=== PATIENT | male | born 1990 ===

== ENCOUNTER → 2017-09-23 | Outpatient (CLI) | payer BC, OTHER ==
[2017-09-23 12:43] VITALS: BP 166/92; PULSE 82; RESP 15; TEMP 97.7; BMI 71.1
--- NOTE | 2017-11-27 18:16 | P.PN ---
Subjective Progress Note Date: 09/23/17 DATE OF SERVICE: 09/23/2017 CHIEF COMPLAINT: Bariatric assessment. HISTORY OF PRESENT ILLNESS: Bj Thompson is a 27-year-old male who presents with lifelong morbid obesity. As a result of his super morbid obesity, he has developed hypertension. He has undergone over 6+ months medical supervised weight loss. His highest personal weight was 536 pounds. Today he comes in weighing 517 pounds. Since his visit 1 week ago, he has gained 6 pounds. He completed an upper endoscopy findings of a gastric tumor. Additionally, computed tomography scan was obtained. He also had findings of obstructive sleep apnea during this procedure. Now presents for further follow-up. At his height is 5 foot 11.5 inches, he presents 517 pounds. His body mass index is 71.2. He is 339 pounds overweight. His ideal body weight is 178 pounds. He is evaluating for sleeve gastrectomy. PAST MEDICAL HISTORY: 1. Morbid obesity due to excess calories. 2. Body mass index of 73.9 down to 71.2. 3. Hypertensive heart disease. 4. History of tachycardia. PAST SURGICAL HISTORY: 1. No abdominal surgeries. 2. History of facial surgery. 3. Upper endoscopy. HOME MEDICATIONS: 1. Zestoretic. ALLERGIES: Denies. SOCIAL HISTORY: No active tobacco use. FAMILY HISTORY: No family history of ulcerative colitis disease or Crohn's disease. Family history of morbid obesity. No lupus in family. No reports of stomach or esophageal cancer. Mother had thyroid cancer. REVIEW OF ORGAN SYSTEMS: CONSTITUTIONAL: His highest personal weight was 536 pounds. Today he comes in weighing 517 pounds. At his height is 5 foot 11.5 inches, he presents 517 pounds. His body mass index is 71.2. He is 339 pounds overweight. His ideal body weight is 178 pounds. Body mass index of 73.9 down to 71.2. HEENT: Denies any active troubles with vision or hearing. No troubles with swallowing. ENDOCRINE: No diabetes. No hypothyroidism. CARDIOVASCULAR: No reports of palpitations or heart attacks or chest pain. Has hypertension. RESPIRATORY: No asthma. No recent pneumonias. Has obstructive sleep apnea. GI: Denies any bright red blood per rectum or constipation. Does have gastroesophageal reflux disease as described above. MUSCULOSKELETAL: No scoliosis of the spine. Denies any acute lower back pain, hip or knee pain. NEURO: No headaches. No seizure disorders. PSYCH: No depression without suicidal ideation. RHEUMATOLOGIC: No lupus. No rheumatoid arthritis. HEMATOLOGIC: Denies any abnormal bleeding or bruising. No personal history of DVTs. SKIN: No rash. No skin cancer. PHYSICAL EXAM: VITAL SIGNS: Height 5 foot 11.5 inches, weight 517 pounds. BMI 71.2. GENERAL: Well-developed male in no acute distress. HEENT: No scleral icterus. Extraocular movements grossly intact. Hears conversational speech. No nasal drainage. NECK: Supple without lymphadenopathy. CHEST: Nonlabored respirations with equal bilateral excursions. CARDIOVASCULAR: Regular rate on repeat assessment. Distal 2+ pulses. ABDOMEN: Obese, soft, nontender, nondistended. MUSCULOSKELETAL: No clubbing, cyanosis. Gross strength 5/5 distal lower extremities. 1+ pre-tibial pitting edema. NEURO: No focal or lateralizing signs. Cranial nerves 2 through 12 grossly within normal limits. PSYCH: Appropriate affect. Alert and oriented to person, place and time. SKIN: Good skin turgor. Well perfused. STUDIES: CT of the abdomen pelvis reviewed without findings of large gastric tumor. Hepatosplenomegaly identified. EGD FINDINGS: Squamocolumnar junction 41 cm from the incisors. Diaphragmatic hiatus at 41 cm. Hill grade 3 lower esophageal valve. LA grade B erosive esophagitis. Superficial gastritis. A large over 4 cm submucosal mass was found distal to the angularis incisura along the greater curvature along the stomach. No active duodenitis. Final Pathologic Diagnosis GASTRIC ANTRUM, BIOPSY: CHRONIC GASTRITIS. IMMUNOPEROXIDASE STAIN NEGATIVE FOR HELICOBACTER PYLORI ORGANISMS (CONTROLS APPROPRIATE). LABS: Low iron. ASSESSMENT: 1. Morbid obesity due to excess calories. 2. Body mass index of 73.9 down to 71.2. 3. Hypertensive heart disease. 4. History of tachycardia. 5. Obstructive sleep apnea. 6. Gastroesophageal reflux disease. 7. Iron deficiency anemia. 8. Vitamin D deficiency. 9. Leukocytosis of unclear etiology. PLAN: 1. Studies were reviewed with findings of a submucosal tumor likely benign. Patient wishes proceed for sleeve gastrectomy. 2. During his upper endoscopy, he had severe obstructive sleep apnea. Recommend assessment and evaluation including treatment for sleep apnea. 3. Vitamin D treatment started. 4. Recommend iron supplementation for iron deficiency anemia. 5. Will need dietary classes for gastrectomy-type diets. 6. Recommend follow-up completion of medical risk assessment including pulmonary assessment for sleep apnea. Objective - Vital Signs Vital signs: Vital Signs Temp 97.7 F 09/23/17 12:15 Pulse 82 09/23/17 12:15 Resp 15 09/23/17 12:15 BP 166/92 09/23/17 12:15 Pulse Ox Intake & Output 09/22/17 09/23/17 09/23/17 18:59 06:59 18:59 Weight 234.825 kg
== END | disposition home or self-care (01) ==
LOC: BARWHC3 11:02
PROVIDERS: ATTEND Surgery Plastic and Reconstructive Surgery
DX: Z48.815 Encounter for surgical aftercare following surgery on the digestive system (principal); E66.01 Morbid (severe) obesity due to excess calories; I11.9 Hypertensive heart disease without heart failure; G47.33 Obstructive sleep apnea (adult) (pediatric); K21.9 Gastro-esophageal reflux disease without esophagitis; D50.9 Iron deficiency anemia, unspecified; E55.9 Vitamin D deficiency, unspecified; D72.829 Elevated white blood cell count, unspecified; Z68.45 Body mass index [BMI] 70 or greater, adult; Z86.79 Personal history of other diseases of the circulatory system; Z79.899 Other long term (current) drug therapy
CPT/HCPCS: 99211

== ENCOUNTER → 2017-12-29 | Outpatient (CLI) | payer BC, OTHER ==
[2017-12-29 17:10] LABS: Basophils # (A) 0.1 k/uL (0-0.2); Basophils % (A) 1 %; Eosinophils # (A) 0.4 k/uL (0-0.7); Eosinophils % (A) 3 %; HGB 15.3 gm/dL (13.0-17.5); Lymphocytes # (A) 2.4 k/uL (1.0-4.8); Lymphocytes % (A) 21 %; MCH 25.2 pg (25.0-35.0); MCHC 31.8 g/dL (31.0-37.0); MCV 79.4 fL (80.0-100.0); Monocytes # (A) 0.6 k/uL (0-1.0); Monocytes % (A) 5 %; Neutrophils # (A) 7.8 k/uL (1.3-7.7); Neutrophils % (A) 68 %; Platelet Count 253 k/uL (150-450); RBC 6.05 m/uL (4.30-5.90); RDW 14.7 % (11.5-15.5); WBC 11.5 k/uL (3.8-10.6)
[2017-12-29 17:21] LABS: ALT 85 U/L (21-72); AST 49 U/L (17-59); Albumin 4.6 g/dL (3.5-5.0); Alkaline Phosphatase 92 U/L (38-126); Anion Gap 15 mmol/L; Blood Urea Nitrogen 19 mg/dL (9-20); Carbon Dioxide 24 mmol/L (22-30); Chloride 99 mmol/L (98-107); Glucose 99 mg/dL (74-99); Sodium 138 mmol/L (137-145); Total Bilirubin 0.6 mg/dL (0.2-1.3); Total Protein 8.4 g/dL (6.3-8.2)
[2017-12-29 17:28] LABS: Potassium 4.3 mmol/L (3.5-5.1)
== END | disposition home or self-care (01) ==
LOC: LABPAT 16:29
PROVIDERS: ATTEND Surgery Plastic and Reconstructive Surgery
DX: Z01.812 Encounter for preprocedural laboratory examination (principal)
CPT/HCPCS: 80053; 85025; 93005

== ENCOUNTER → 2017-12-29 | Outpatient (CLI) | payer BC, OTHER ==
[2017-12-31 10:42] VITALS: BP 145/85; PULSE 96; RESP 18; TEMP 99.3; BMI 70.1
--- NOTE | 2018-03-07 17:42 | P.PN ---
Subjective Progress Note Date: 12/29/17 DATE OF SERVICE: 12/29/2017 CHIEF COMPLAINT: Bariatric assessment HISTORY OF PRESENT ILLNESS: Bj Thompson is a 27-year-old male who presents with lifelong morbid obesity. Has been undergoing medical supervised weight loss. His highest personal weight was 536 pounds. Today he comes in weighing 509 pounds. Since his last visit 3 months ago, he has lost another 12 pounds. He reports multiple personal obligations which has caused her scheduling this procedure. Separately, he is very concerned about postprocedure diet. He has completed diet classes. He is looking into the gastric bypass. No reports of abdominal pain. At his height is 5 foot 11.5 inches, he presents 509 pounds. His body mass index is reduced from 73.9 to 70.1. He is 331 pounds overweight. His ideal body weight is 178 pounds. PAST MEDICAL HISTORY: 1. Morbid obesity due to excess calories. 2. Body mass index of 73.9 initial 3. Hypertensive heart disease. 4. History of tachycardia. 5. Obstructive sleep apnea 6. Craniofacial anomalies PAST SURGICAL HISTORY: 1. No abdominal surgeries. 2. History of facial surgery. 3. Upper endoscopy. HOME MEDICATIONS: 1. Zestoretic. 2. Vitamin D ALLERGIES: Morphine. SOCIAL HISTORY: No active tobacco use. FAMILY HISTORY: No family history of ulcerative colitis disease or Crohn's disease. Family history of morbid obesity. No lupus in family. No reports of stomach or esophageal cancer. Mother had thyroid cancer. REVIEW OF ORGAN SYSTEMS: CONSTITUTIONAL: At his height is 5 foot 11.5 inches, he presents 509 pounds. His body mass index is reduced from 73.9 to 70.1. He is 331 pounds overweight. His ideal body weight is 178 pounds. His highest personal weight was 536 pounds. HEENT: Denies any active troubles with vision or hearing. No troubles with swallowing. ENDOCRINE: No diabetes. No hypothyroidism. CARDIOVASCULAR: No reports of palpitations or heart attacks or chest pain. Has hypertension. RESPIRATORY: No asthma. No recent pneumonias. Has obstructive sleep apnea. GI: Denies any bright red blood per rectum or constipation. Does have occasional gastroesophageal reflux disease. MUSCULOSKELETAL: No scoliosis of the spine. Denies any acute lower back pain, hip or knee pain. NEURO: No headaches. No seizure disorders. PSYCH: No depression without suicidal ideation. RHEUMATOLOGIC: No lupus. No rheumatoid arthritis. HEMATOLOGIC: Denies any abnormal bleeding or bruising. No personal history of DVTs. SKIN: No rash. No skin cancer. PHYSICAL EXAM: VITAL SIGNS: Height 5 foot 11.5 inches, weight 509 pounds. BMI 70.1. Vital Signs Temp 99.3 F 12/29/17 17:00 Pulse 96 12/29/17 17:00 Resp 18 12/29/17 17:00 BP 145/85 12/29/17 17:00 Pulse Ox GENERAL: Well-developed male in no acute distress. HEENT: No scleral icterus. Extraocular movements grossly intact. Hears conversational speech. No nasal drainage. NECK: Supple without lymphadenopathy. CHEST: Nonlabored respirations with equal bilateral excursions. CARDIOVASCULAR: Regular rate on repeat assessment. Distal 2+ pulses. ABDOMEN: Obese, soft, nontender, nondistended. MUSCULOSKELETAL: No clubbing, cyanosis. Gross strength 5/5 distal lower extremities. 2+ pre-tibial pitting edema. NEURO: No focal or lateralizing signs. Cranial nerves 2 through 12 grossly within normal limits. PSYCH: Appropriate affect. Alert and oriented to person, place and time. SKIN: Good skin turgor. Well perfused. LABS: Pending ASSESSMENT: 1. Morbid obesity due to excess calories. 2. Body mass index of 73.9 down to 70.1. 3. Hypertensive heart disease. 4. History of tachycardia. 5. Obstructive sleep apnea. 6. Gastroesophageal reflux disease. 7. Iron deficiency anemia. 8. Vitamin D deficiency. PLAN: 1. Bariatric options between a sleeve, band and a [id number]-en-[id number] gastric bypass were reviewed in detail. He elected for a sleeve gastrectomy. Robotic assisted approach described. 2. The [place] [facility] Data was also reviewed with benefits and risks as described. 3. An 8 page second-generation bariatric consent form was reviewed in detail including potential of bleeding, infection, leaks, adequate weight loss, nutritional deficiencies which he demonstrated understanding of the risks. 4. A 2 week high-protein low caloric 800 kcal diet described to address hepatomegaly. 5. Preoperative labs including complete metabolic panel and CBC with type and screen recommended. 6. DVT prophylaxis per [place] [facility]. 7. Antibiotic prophylaxis. 8. Inpatient hospitalization anticipated for more than 2 nights. 9. All questions and concerns were addressed with the patient. 10. Recommended dietary classes. Objective - Vital Signs Vital signs: Vital Signs Temp 99.3 F 12/29/17 17:00 Pulse 96 12/29/17 17:00 Resp 18 12/29/17 17:00 BP 145/85 12/29/17 17:00 Pulse Ox
== END | disposition home or self-care (01) ==
LOC: BARWHC3 15:10
PROVIDERS: ATTEND Surgery Plastic and Reconstructive Surgery
DX: E66.01 Morbid (severe) obesity due to excess calories (principal); I11.9 Hypertensive heart disease without heart failure; G47.33 Obstructive sleep apnea (adult) (pediatric); K21.9 Gastro-esophageal reflux disease without esophagitis; D50.9 Iron deficiency anemia, unspecified; E55.9 Vitamin D deficiency, unspecified; Z86.79 Personal history of other diseases of the circulatory system; Z68.45 Body mass index [BMI] 70 or greater, adult; Z79.899 Other long term (current) drug therapy
CPT/HCPCS: 99211